=== PATIENT | male | born 1995 ===

== ENCOUNTER 2022-03-31 13:11 | Emergency (ER) | payer SELFPAY ==
[~2022-03-31] VITALS: Ht 177.8 cm; Wt 80.7 kg
[2022-03-31] MEDS ORDERED: KETOROLAC TROMETHAMINE 15 MG INJ IM ONE (13:45)
[2022-03-31] MEDS ORDERED: KETOROLAC TROMETHAMINE 15 MG INJ ONE (13:49)
--- NOTE | 2022-03-31 14:05 | NUR ---
pt refusing saline lock at this time. aware. pt resting comfortably in bed.
[2022-03-31 14:06] LABS: HEMATOCRIT 43.2 % (36.7-47.1); MEAN CORPUSCULAR HEMOGLOBIN 29.9 uug (23.8-33.4); MEAN CORPUSCULAR VOLUME 87.6 fL (73.0-96.2); PLATELET COUNT (AUTO) 275 K/uL (152-348)
[2022-03-31] MEDS ORDERED: IBUP-1955 PO (14:08)
[2022-03-31 14:17] LABS: CARBON DIOXIDE 29 mmol/L (21-32); CHLORIDE 102 mmol/L (98-107); CREATININE 0.9 mg/dL (0.6-1.3); GLUCOSE 97 mg/dL (74-106); POTASSIUM 4.2 mmol/L (3.5-5.1); UREA NITROGEN, BLOOD 11 mg/dL (7-18)
--- NOTE | 2022-03-31 14:45 | NUR ---
pt refused repeat troponin/labs, preparing discharge. unable to cancel lab order on [place].
--- NOTE | 2022-03-31 14:59 | NUR ---
Patient discharged to home in stable condition. Written and verbal after care instructions given. Patient verbalizes understanding of instructions. Stressed follow up or return to ER for worsening s/s.
[2022-03-31 15:01] VITALS: BP 133/99
== END 2022-03-31 15:06 | disposition home or self-care (01) ==
LOC: ER 13:15
DX: R07.89 Other chest pain (principal); E03.9 Hypothyroidism, unspecified
CPT/HCPCS: 99285; 71045; 80048; 85025; 84484; 36415; 93005; 96372; J1885; A4663